=== PATIENT | female | born 1995 | race African-American/Black ===

== ENCOUNTER 2019-10-19 15:20 | Emergency (ER) | payer MEDICAID ==
[~2019-10-19] VITALS: Ht 162.6 cm; Wt 58.0 kg
[2019-10-19] MEDS ORDERED: KETOROLAC 30MG/ML VIAL IM ONE (18:30)
[2019-10-19 19:19] VITALS: BP 124/78
== END 2019-10-19 19:21 | disposition home or self-care (01) ==
LOC: ER 15:48
DX: J40 Bronchitis, not specified as acute or chronic (principal); M79.10 Myalgia, unspecified site; R50.81 Fever presenting with conditions classified elsewhere; R07.9 Chest pain, unspecified
CPT/HCPCS: 71045; 81025; 96372; 99283; J1885

== ENCOUNTER 2020-09-05 15:47 | Emergency (ER) | payer MEDICAID ==
[~2020-09-05] VITALS: Ht 157.5 cm; Wt 57.0 kg
[2020-09-05 16:04] VITALS: BP 130/86
[2020-09-05] MEDS ORDERED: KETOROLAC 30MG/ML VIAL IM ONE (17:15)
== END 2020-09-05 17:50 | disposition home or self-care (01) ==
LOC: ER 15:47
DX: M79.602 Pain in left arm (principal); M54.5 Low back pain; Z98.890 Other specified postprocedural states
CPT/HCPCS: 96372; 99283; J1885

== ENCOUNTER 2021-12-20 09:00 | Emergency (ER) | payer MEDICAID ==
[~2021-12-20] VITALS: Ht 157.5 cm; Wt 60.0 kg
[2021-12-20] MEDS ORDERED: IBUPROFEN 400MG TABLET PO ONE (10:00)
[2021-12-20] MEDS ORDERED: DEXAMETHASONE 4MG TABLET PO ONE (10:00)
[2021-12-20] MEDS ORDERED: FAMOTIDINE 20MG TABLET PO ONE (10:00)
[2021-12-20] MEDS ORDERED: MAGNESIUM/ALUMINUM HYDROXIDE/SIMETHICONE 30ML UDC PO STA (10:00)
[2021-12-20 10:14] VITALS: BP 125/80
[2021-12-20] MEDS ORDERED: IBUP-2028 MT (10:16)
[2021-12-20] MEDS ORDERED: TOPUD PO (10:16)
[2021-12-20] MEDS ORDERED: BENZ-16 MT (10:17)
== END 2021-12-20 10:29 | disposition home or self-care (01) ==
LOC: ER 09:00
DX: B34.9 Viral infection, unspecified (principal); R05.9 Cough, unspecified; F12.10 Cannabis abuse, uncomplicated; Z20.822 Contact with and (suspected) exposure to COVID-19
CPT/HCPCS: 87426; 99283; J8540

== ENCOUNTER 2022-10-16 11:08 | Emergency (ER) | payer MEDICAID ==
[~2022-10-16] VITALS: Ht 157.5 cm; Wt 53.0 kg
[~2022-10-16 11:08] MED LIST: BENZ-16 MT; IBUP-2028 MT; TOPUD PO
[2022-10-16 11:27] VITALS: BP 134/87
[2022-10-16] MEDS ORDERED: ACETAMINOPHEN 500MG TABLET PO ONE (12:00)
[2022-10-16] MEDS ORDERED: ACETAMINOPHEN 500MG TABLET PO NR (14:45)
[2022-10-16] MEDS ORDERED: KETOROLAC 60MG/2ML VIAL IM ONE (15:15)
[2022-10-16] MEDS ORDERED: PENICILLIN G BENZATHINE 1,200,000 UNITS/2ML SYR IM ONE (15:30)
== END 2022-10-16 16:11 | disposition home or self-care (01) ==
LOC: ER 11:08
DX: J03.90 Acute tonsillitis, unspecified (principal); F12.10 Cannabis abuse, uncomplicated
CPT/HCPCS: 81025; 96372; 99284; J0561; J1885